=== PATIENT | female | born 1970 | race Caucasian/White ===

== ENCOUNTER 2016-06-01 11:33 | Emergency (ER) | payer MEDICAID ==
--- NOTE | 2016-06-06 10:00 | ER ---
ADMIT: 06/01/2016 RM/LOC: [facility] MR#: [id number] [address] [place] [id number] BONITA QUEEN [address] [place] [address] Emergency Room Report SEX: F AGE: 46 : 1970 DATE: 06/01/2016 The patient is a 46-year-old, presents to the emergency room complaining of epigastric pain. She has no history, just moved to the [facility] 3 months ago from [place]. She is [place]. She has been taking Zantac all along and thinks that she may have had gastritis although she has never been diagnosed per se. She has had some nausea for a couple days now. Her abdominal discomfort started on Sunday. Her vitals are within normal limits with a pulse of 118, she is slightly tachycardic, and temperature of 98.2. She denies having any back pain. No abdominal pain. ALLERGIES: SHE IS ALLERGIC TO REGLAN AND IODINE. MEDICATIONS: She takes Zantac on and off. PAST SURGICAL HISTORY: She has had C-sections 2 and an appy. Otherwise no other abdominal surgeries. PHYSICAL EXAMINATION: GENERAL: Mildly anxious female, at bedside. ABDOMEN: Tenderness in the epigastrium with radiation to the right upper abdomen. SKIN: Good color and turgor. EXTREMITIES: Well perfused. CARDIOVASCULAR: Within normal limits. LUNGS: Clear. LABORATORY DATA: H. pylori negative. CBC within normal limits. CMP within normal limits. UA negative. test negative. Essentially all the labs are within normal limits. ADMIT: 06/01/2016 RM/LOC: [facility] MR#: [id number] [address] [place] [id number] [place] BONITA HOBSON [address] [place] [address] Emergency Room Report SEX: F AGE: 46 : 1970 I did discuss with her the possibility of having a hiatal hernia and she verified that she had a diagnosis of a very small hiatal hernia about 3 years ago when she was in [place]. She had an endoscopy and that is what she had, but she failed to notify me of that at this point. So we are going to go ahead and give her treatment as if she continues having this problem. I consulted with Dr. Cohen, who just came on shift and I am going to diagnose her with hiatal hernia, epigastric abdominal pain, and headache. She is receiving Toradol and Phenergan for her headache and a GI cocktail that we gave her did not quite help her much, but it kind of dulled the pain. She is going to follow up with the primary provider. I am going to write for some [place] for pain control and I gave her a couple of places in town that she can check to see if she can get an endoscopy and get diagnosed with specific diagnosis. CODY Diaz / Dylon Arriaga MD / johana JOB #: [id number] CC: Dylon Arriaga MD, Attending Physician Alek Jalloh MD, Family Physician
[2016-10-28] MEDS ORDERED: PROTONIX40 MG PO (10:11)
[2016-10-28] MEDS ORDERED: CARAFATE DPS1 GM PO (10:11)
== END 2016-06-01 17:50 | disposition home or self-care (01) ==
LOC: ER 11:33
DX: R10.13 Epigastric pain (principal); R51 Headache; Z88.1 Allergy status to other antibiotic agents; Z91.041 Radiographic dye allergy status

== ENCOUNTER 2016-06-26 15:34 | Emergency (ER) | payer MEDICAID ==
--- NOTE | 2016-06-27 15:27 | NUR ---
Pt triggered as a high ED user. Spoke with pt via tire buffer on the telephone. Pt states she recently moved to [place] from [place]. Pt states she does not have a PCP. Gave contact information for [facility] (both are in-network with Medicaid - [employer]). Pt states she has Medicaid and transportation. Pt states she will call and schedule an appt to establish care with a PCP.
--- NOTE | 2016-07-15 21:34 | ER ---
ADMIT: 06/26/2016 RM/LOC: ER [facility] MR#: [id number] [address] [id number] BONITA QUEEN DANIELA [address] [place] [address] Emergency Room Report SEX: F AGE: 46 : 1970 DATE: 06/26/2016 HISTORY OF PRESENT ILLNESS: A 46-year-old female who comes to the Emergency Department with dizziness, weakness, abdominal pain, muscle aches for the past 14 days. She had been seen in the Emergency Department on June 01, 2016, with similar complaints. See T-sheet for remainder of history and physical. The patient was given IV fluids. She felt better. A CT scan of the head was negative. She was given ketorolac IV for her headache. She has been instructed to follow up with her primary doctor this week. DIAGNOSIS: Headache and weakness. Lonnie Sanford MD/ johana JOB #: [id number] CC: Pawel Ochoa MD, Attending Physician Rema Sosa MD, Family Physician
[2016-10-28] MEDS ORDERED: CARAFATE DPS1 GM PO (10:11)
[2016-10-28] MEDS ORDERED: PROTONIX40 MG PO (10:11)
== END 2016-06-26 18:15 | disposition home or self-care (01) ==
LOC: ER 15:34
DX: R51 Headache (principal); R53.1 Weakness; Z98.51 Tubal ligation status; Z98.890 Other specified postprocedural states

== ENCOUNTER → 2016-08-03 | Outpatient (CLI) | payer MEDICAID ==
[~2016-08-03] MED LIST: CARAFATE DPS1 GM PO; PROTONIX40 MG PO
== END | disposition home or self-care (01) ==
LOC: RAD.S 08:50
DX: Z12.31 Encounter for screening mammogram for malignant neoplasm of breast (principal); R92.1 Mammographic calcification found on diagnostic imaging of breast